=== PATIENT | female | born 2000 | race Hispanic/Latino ===

== ENCOUNTER 2021-04-27 19:26 | Emergency (ER) | payer BC, MEDICAID ==
[~2021-04-27] VITALS: Ht 149.9 cm; Wt 46.7 kg
[2021-04-27 19:34] VITALS: BP 123/84
== END 2021-04-27 20:37 | disposition home or self-care (01) ==
LOC: EDH 19:26
DX: F41.9 Anxiety disorder, unspecified (principal); R42 Dizziness and giddiness
CPT/HCPCS: 99281